=== PATIENT | female | born 1990 | race Caucasian/White ===

== ENCOUNTER 2017-01-30 16:21 | Emergency (ER) | payer MEDICAID ==
[~2017-01-30] VITALS: Ht 162.6 cm; Wt 59.0 kg
[~2017-01-30 16:21] MED LIST: ALBUTEROL SULF8.5 GM INH; AZITHROMYCIN250 MG ORAL; PHENERGAN6.25 MG/5 ORAL; PRILOSEC20 MG ORAL; ZOFRAN ODT4 MG ORAL
[2017-01-30 16:35] VITALS: BP 128/83
[2017-01-30] MEDS ORDERED: Bacitracin Oint UD TOPIC ONE (16:45)
[2017-01-30] MEDS ORDERED: Norco 5mg/325mg tab ORAL ONE (16:45)
[2017-01-30] MEDS ORDERED: Lidocaine 1% MPF 10mg/ml 5ml IM ONE (16:45)
[2017-01-30] MEDS ORDERED: TdaP Vaccine 0.5ml Syr IM ONE (16:45)
--- NOTE | 2017-01-30 16:49 | Emergency Room Report ---
History of Present Illness General Chief Complaint: Laceration Source: Patient Present Illness HPI 26-year-old female presents to emergency Department complaining of laceration to the right ring finger times one hour. Patient states she was cleaning dishes when a glass broke and she cut her finger on a sharp edge. Patient states she does now know when her last tetanus vaccination was. Patient denies taking blood thinning medications. Patient reports 8/10 in severity pain to the right ring finger exacerbated upon touch or movement. Denies numbness tingling or loss of sensation or gross motor movements of the extremities, incontinence of bowel or bladder. Denies CP, Palpitations, LOC, AMS, dizziness, Changes in Vision, Sensation, paresthesias, or a sudden severe headache. Allergies: Coded Allergies: NO KNOWN ALLERGIES (Unverified Allergy, Unknown, 08/27/15) Patient History Past Medical History: see triage record Past Surgical History: none Pertinent Family History: none Last Menstrual Period: 01/24/17 Now: No Reviewed Nursing Documentation: PMH: Agreed, PSxH: Agreed Nursing Documentation-PMH Past Medical History: No Stated History Review of Systems All Other Systems: negative except mentioned in HPI Physical Exam Vital Signs Date Time Temp Pulse Resp B/P Pulse Ox O2 Delivery O2 Flow Rate FiO2 01/30/17 16:30 97.5 108 128/83 100 Room Air 01/30/17 16:35 15 Sp02 EP Interpretation: reviewed, normal General Appearance: no apparent distress, alert, GCS 15, non-toxic Head: normocephalic, atraumatic Eyes: bilateral eye PERRL, bilateral eye normal inspection ENT: hearing grossly normal, normal pharynx, no angioedema, normal voice Neck: full range of motion, supple/symm/no masses Respiratory: chest non-tender, lungs clear, normal breath sounds, speaking full sentences Cardiovascular #1: regular rate, rhythm, no edema Rectal: deferred Musculoskeletal: back normal, gait/station normal, normal range of motion - FROM , non-tender, no calf tenderness, other - PT is NVI to extremity. Neurologic: alert, oriented x3, responsive, motor strength/tone normal, sensory intact, speech normal Psychiatric: judgement/insight normal, memory normal, mood/affect normal, no suicidal/homicidal ideation Skin: normal color, no rash, warm/dry, well hydrated, laceration - 1.5cm laceration to the lateral aspect of the right 4th digit. laceration is linear and runs Procedures Laceration/Wound Repair Laceration/Wound Repair : Consent: Verbal Wound Location: upper extremity - right ring finger Wound's Depth, Shape: linear Wound Length (cm): 1 Betadine Prep?: Yes Anesthesia: 1% Lidocaine Volume Anesthetic (ccs): 3 Wound Repaired With: sutures Suture Size/Type: 6:0 Number of Sutures: 4 Layer Closure?: No Sterile Dressing Applied?: Yes Splint Applied?: Yes Type of Splint Applied: finger Sling Applied?: No Patient Tolerated: Well Complications: None Medical Decision Making PA Attestation Dr. Langley is my supervising Physician whom patient management has been discussed with. Diagnostic Impression: Primary Impression: Laceration ER Course 26-year-old female presents to emergency Department complaining of laceration to the right ring finger times one hour. Patient states she was cleaning dishes when a glass broke and she cut her finger on a sharp edge. Patient states she does now know when her last tetanus vaccination was. Patient denies taking blood thinning medications. Patient reports 8/10 in severity pain to the right ring finger exacerbated upon touch or movement. Ddx considered but are not limited to laceration, tendon injury, cellulitis, amputation Vital signs: are WNL, pt. is afebrile H&PE are most consistent with: right ring finger laceration approx 1.5 cm in length ORDERS: none required at this time, the diagnosis is clinical ED INTERVENTIONS: -5mg [place] PO -Tetanus vaccine was administered as pt. vaccination status was unknown. - The wound was copiously irrigated with normal saline, and explored for foreign body for which no FB was found. - pt. is anesthetized with 1%lidocaine - The wound was approximated and closed using 4 interrupted 6.0 Prolene sutures. -Bacitracin is applied. -Finger Splint applied by medical technician assistant. Pt. remains neurovascularly intact. Discussed with patient: That we make every effort to approximate the laceration as best as we can so that scarring will be as cosmetically pleasing as possible with our limited cosmetic skill set in the Emergency dept. Regardless of our best efforts there will be scarring after laceration repair. The extent of scarring is unknown at this time. DISCHARGE: At this time pt. is stable for d/c to home. Will provide printed patient care instructions, and any necessary prescriptions. Care plan and follow up instructions have been discussed with the patient prior to discharge. Last Vital Signs Date Time Temp Pulse Resp B/P Pulse Ox O2 Delivery O2 Flow Rate FiO2 01/30/17 16:35 97.5 79 15 128/83 100 Room Air Disposition: HOME, SELF-CARE Condition: Stable Scripts Bacitracin Zinc/Polymyx B Sulf (HM DOUBLE ANTIBIOTIC OINTMENT) 28.4 Gm Oint...g. 1 APPLIC TP BID, #28.4 GM Prov: Jordyn Garcias 01/30/17 Cephalexin* (KEFLEX*) 500 Mg Capsule 500 MG ORAL EVERY 12 HOURS for 7 Days, #14 CAP 0 Refills Prov: Jordyn Garcias 01/30/17 Patient Instructions: Laceration Care, Adult Additional Instructions: Take medications as directed. Follow up with PCP in 3-5 days Return sooner to ED if new symptoms occur, or current symptoms become worse. - Please note that this Emergency Department Report was dictated using [employer] table attendant technology software, occasionally this can lead to erroneous entry secondary to interpretation by the dictation equipment. Jordyn Garcias Jan 30, 2017 16:49
[2017-01-30] MEDS ORDERED: CEPHALEXIN500 MG ORAL (17:38)
[2017-01-30] MEDS ORDERED: HM DOUBLE ANT28.4 G1 TP (17:38)
[2017-01-30 17:50] VITALS: BP 132/81
== END 2017-01-30 17:50 | disposition home or self-care (01) ==
LOC: EMR 16:55
DX: S61.214A Laceration without foreign body of right ring finger without damage to nail, initial encounter (principal); Z23 Encounter for immunization; W25.XXXA Contact with sharp glass, initial encounter; Y93.G1 Activity, food preparation and clean up; Y92.9 Unspecified place or not applicable; Y99.8 Other external cause status
CPT/HCPCS: 12001; 29280; 90471; 90715; 99284; Z7502

== ENCOUNTER 2017-08-13 10:06 | Emergency (ER) | payer MEDICAID ==
[~2017-08-13] VITALS: Ht 160 cm; Wt 49.0 kg
[~2017-08-13 10:06] MED LIST changes: +CEPHALEXIN500 MG ORAL; +HM DOUBLE ANT28.4 G1 TP
[2017-08-13 10:17] VITALS: BP 113/77
--- NOTE | 2017-08-13 10:55 | Emergency Room Report ---
History of Present Illness General Chief Complaint: Upper Respiratory Illness Source: Patient Present Illness HPI 26-year-old female no significant past medical history presenting with 2 days of sore throat right ear pain productive cough. Productive cough with yellow sputum. Subjective fever and chills. Sick contacts include grandma no other complaints Allergies: Coded Allergies: NO KNOWN ALLERGIES (Unverified Allergy, Unknown, 08/27/15) Patient History Past Medical History: see triage record Past Surgical History: none Pertinent Family History: none Last Menstrual Period: 07/29/2017 Reviewed Nursing Documentation: PMH: Agreed, PSxH: Agreed Nursing Documentation-PMH Past Medical History: No Stated History Review of Systems All Other Systems: negative except mentioned in HPI Physical Exam Vital Signs Date Time Temp Pulse Resp B/P (MAP) Pulse Ox O2 Delivery O2 Flow Rate FiO2 08/13/17 10:17 98.1 83 16 113/77 98 Room Air Sp02 EP Interpretation: reviewed, normal General Appearance: normal inspection, well appearing, no apparent distress, alert, GCS 15, non-toxic Head: normocephalic, atraumatic Eyes: bilateral eye normal inspection, bilateral eye PERRL, bilateral eye EOMI ENT: normal voice, moist mucus membranes, other - Mild posterior pharynx erythema no exudates, no uvula enlargement or tonsillar enlargement no exudates Neck: normal inspection, full range of motion, supple Respiratory: normal inspection, lungs clear, normal breath sounds, no respiratory distress, no retraction, no wheezing, speaking full sentences, chest symmetrical Cardiovascular #1: normal inspection, regular rate, rhythm, no edema, normal capillary refill Cardiovascular #2: 2+ radial (R), 2+ radial (L) Gastrointestinal: normal inspection, non tender, soft, non-distended, no guarding Musculoskeletal: normal inspection, back normal, normal range of motion, non- tender Neurologic: normal inspection, alert, oriented x3, responsive, motor strength/ tone normal, sensory intact, normal gait, speech normal Psychiatric: normal inspection, judgement/insight normal, memory normal Skin: normal inspection, normal color, no rash, warm/dry, well hydrated, normal turgor Medical Decision Making Diagnostic Impression: Primary Impression: Upper respiratory infection Additional Impression: Left ear pain ER Course 26-year-old female with sore throat cough earache DDX: viral syndrome, pharyngitis, pneumonia. allergies Plan: Motrin, supportive care. Chest x-ray ER course: Disposition: Patient will be discharged to home. Patient will follow up with primary care doctor within 5 days. Strict return precautions discussed with patient such as worsening throat pain/swelling, dysphagia, high fever or chills, shortness of breath, abdominal pain, which may indicate severe illness. Patient verbalized understanding and agreed with plan. Please note that this Emergency Department Report was dictated using [employer] student services technology software, occasionally this can lead to erroneous entry secondary to interpretation by the dictation equipment. Last Vital Signs Date Time Temp Pulse Resp B/P (MAP) Pulse Ox O2 Delivery O2 Flow Rate FiO2 08/13/17 10:17 98.1 83 16 113/77 98 Room Air Disposition: HOME, SELF-CARE Condition: Improved Scripts Ibuprofen* (MOTRIN*) 600 Mg Tablet 600 MG ORAL Q8H Y for For Pain, #30 TAB 0 Refills Prov: Chip Alexis M.D. 08/13/17 Patient Instructions: Upper Respiratory Infection, Adult Chip Alexis M.D. Aug 13, 2017 10:55
[2017-08-13] MEDS ORDERED: IBUPROFEN600 MG ORAL (11:01)
--- NOTE | 2017-08-13 11:19 | Diagnostic Imaging Report ---
Indication: Dyspnea Comparison: None A single view chest radiograph was obtained. Findings: Cardiomediastinal appearance is within normal limits for age. Pulmonary vascularity is appropriate. The diaphragmatic contour is smooth and costophrenic angles are sharp. No pleural effusions are identified. The bones are unremarkable. Impression: No acute findings
[2017-08-13 11:27] VITALS: BP 113/77
== END 2017-08-13 11:57 | disposition home or self-care (01) ==
LOC: EMR 11:34
DX: J06.9 Acute upper respiratory infection, unspecified (principal); H92.02 Otalgia, left ear
CPT/HCPCS: 71010; 99283

== ENCOUNTER 2017-08-19 15:45 | Emergency (ER) | payer MEDICAID ==
[~2017-08-19] VITALS: Ht 165.1 cm; Wt 45.8 kg
[~2017-08-19 15:45] MED LIST changes: +IBUPROFEN600 MG ORAL
[2017-08-19] MEDS ORDERED: IBUPROFEN600 MG ORAL (16:23)
[2017-08-19] MEDS ORDERED: PREDNISONE20 MG ORAL (16:23)
[2017-08-19] MEDS ORDERED: AMOXICILLIN500 MG ORAL (16:23)
--- NOTE | 2017-08-19 16:42 | Emergency Room Report ---
History of Present Illness General Chief Complaint: Earache Source: Patient Present Illness HPI The patient is a 26 yo female presenting for sore throat and ear pain which began this morning. She states that she has had sick contact with her mother who has similar symptoms. Pain is a 9/10 dull ache to the left ear and the back of the throat. Worse with swallowing. She has tried Tylenol which has not helped. She denies any recent travel. She denies any fever or chills. She denies other symptoms Allergies: Coded Allergies: NO KNOWN ALLERGIES (Unverified Allergy, Unknown, 08/27/15) Patient History Past Medical History: see triage record Pertinent Family History: none Last Menstrual Period: 08/19/17 Now: No Reviewed Nursing Documentation: PMH: Agreed, PSxH: Agreed Nursing Documentation-PMH Past Medical History: No Stated History Review of Systems All Other Systems: negative except mentioned in HPI Physical Exam Vital Signs Date Time Temp Pulse Resp B/P (MAP) Pulse Ox O2 Delivery O2 Flow Rate FiO2 08/19/17 15:52 98.8 97 15 112/74 97 Room Air Sp02 EP Interpretation: reviewed, normal General Appearance: no apparent distress, alert, GCS 15, non-toxic Head: normocephalic, atraumatic Eyes: bilateral eye normal inspection, bilateral eye PERRL ENT: hearing grossly normal, normal voice, uvula midline, tonsillar swelling, pharyngeal erythema Neck: full range of motion, supple, no bony tend Respiratory: chest non-tender, lungs clear, normal breath sounds, speaking full sentences Musculoskeletal: back normal, gait/station normal, normal range of motion, non- tender Neurologic: alert, oriented x3, responsive, motor strength/tone normal, sensory intact, speech normal Psychiatric: judgement/insight normal, memory normal, mood/affect normal, no suicidal/homicidal ideation Skin: normal color, no rash, warm/dry, well hydrated Lymphatic: no adenopathy Medical Decision Making PA Attestation Dr. Kamara is my supervising physician. Patient management was discussed with my supervising physician Diagnostic Impression: Primary Impression: Pharyngitis, acute Qualified Codes: J02.9 - Acute pharyngitis, unspecified ER Course The patient is a 26 yo female presenting for sore throat and ear pain Differential diagnosis include but not limited to pharyngitis, sinusitis, AOM, bronchitis, PNA Physical exam: Vitals within normal limits. Afebrile. No apparent distress HEENT exam: There is bilateral tonsillar edema, erythema. Uvula midline. Moist mucous membranes. There is no lymphadenopathy. Lungs are clear to auscultation bilaterally Skin is warm and dry. No rash The patient will be discharged home with a prescription for amoxicillin and is given ER precautions. Patient will followup with primary care Last Vital Signs Date Time Temp Pulse Resp B/P (MAP) Pulse Ox O2 Delivery O2 Flow Rate FiO2 08/19/17 15:52 98.8 97 15 112/74 97 Room Air Status: improved Disposition: HOME, SELF-CARE Condition: Improved Scripts Ibuprofen* (MOTRIN*) 600 Mg Tablet 600 MG ORAL Q8H Y for For Pain, #30 TAB 0 Refills Prov: BLAISE HUTTON P.A. 08/19/17 Prednisone* (PREDNISONE*) 20 Mg Tablet 20 MG ORAL DAILY, #5 TAB 0 Refills Prov: BLAISE HUTTON P.A. 08/19/17 Amoxicillin* (AMOXIL*) 500 Mg Capsule 500 MG ORAL Q12HR, #20 CAP Prov: BLAISE HUTTON P.A. 08/19/17 Referrals: [facility],REFERRING (PCP) Patient Instructions: Pharyngitis Additional Instructions: I discussed my findings with the patient. All questions and concerns have been answered. Treatment and medication compliance have been addressed. I advised the patient that they need to follow up with PMD in 3-5 days. Return to ED if pain remains or worsens, cough worsens or remains, you notice blood in your sputum, you notice wheezing, you experience a fever, or if needed for any reason. Patient verbalized understanding of discharge instructions. BLAISE HUTTON Aug 19, 2017 16:42
[2017-08-19 16:45] VITALS: BP 119/80
== END 2017-08-19 16:45 | disposition home or self-care (01) ==
LOC: EMR 16:20
DX: J02.9 Acute pharyngitis, unspecified (principal)
CPT/HCPCS: 99284

== ENCOUNTER 2018-06-03 07:45 | Emergency (ER) | payer MEDICAID ==
[~2018-06-03] VITALS: Ht 167.6 cm; Wt 54.4 kg
[~2018-06-03 07:45] MED LIST changes: +AMOXICILLIN500 MG ORAL; +PREDNISONE20 MG ORAL
[2018-06-03] MEDS ORDERED: AMOXICILLIN500 MG ORAL (08:03)
[2018-06-03] MEDS ORDERED: IBUPROFEN400 MG ORAL (08:03)
[2018-06-03 08:11] VITALS: BP 124/90
[2018-06-03 08:12] VITALS: BP 124/90
--- NOTE | 2018-06-03 08:58 | Emergency Room Report ---
History of Present Illness General Chief Complaint: Sore Throat Source: Patient Present Illness HPI 27-year-old F presents ED complaining of ear ache in sore throat. Started yesterday. Patient states symptoms did not improve after Tylenol so she came here for evaluation. Pain is throbbing, 8 out of 10, nonradiating. Denies any fevers or chills. Denies cough. Denies sick contacts or recent travel. No other aggravating relieving factors. Denies any other associated symptoms Allergies: Coded Allergies: NO KNOWN ALLERGIES (Unverified Allergy, Unknown, 08/27/15) Patient History Past Medical History: none Past Surgical History: none Pertinent Family History: none Social History: Denies: smoking, alcohol use, drug use Last Menstrual Period: 05/27/18 Now: No Immunizations: UTD Reviewed Nursing Documentation: PMH: Agreed; PSxH: Agreed Nursing Documentation-PMH Past Medical History: No Stated History Review of Systems All Other Systems: negative except mentioned in HPI Physical Exam Vital Signs Date Time Temp Pulse Resp B/P (MAP) Pulse Ox O2 Delivery O2 Flow Rate FiO2 06/03/18 07:50 98.2 92 16 124/90 93 Room Air 98.2 Sp02 EP Interpretation: reviewed, normal General Appearance: no apparent distress, alert, GCS 15, non-toxic Head: normocephalic Eyes: bilateral eye normal inspection, bilateral eye PERRL ENT: hearing grossly normal, normal pharynx, no angioedema, normal voice, pharyngeal erythema, other - L TM poor light reflex Neck: full range of motion, no meningismus, supple/symm/no masses Respiratory: normal inspection Cardiovascular #1: normal inspection Gastrointestinal: normal inspection Rectal: deferred Genitourinary: no CVA tenderness Musculoskeletal: normal inspection Neurologic: alert, oriented x3, responsive, motor strength/tone normal, sensory intact, speech normal Psychiatric: normal inspection Skin: normal inspection Lymphatic: normal inspection Medical Decision Making Diagnostic Impression: Primary Impression: Otitis media Qualified Codes: H65.192 - Other acute nonsuppurative otitis media, left ear ER Course Hospital Course 27-year-old M presents to ED with pain L ear, sore throat. no fever. Differential diagnoses include: TM perforation, otitis externa, otitis media Clinical course Patient placed on stretcher. After initial history, physical exam reveals a young female in no acute distress. L TM poor light reflex. minimal pharyngeal erythema. no tonsillar exudates. Remainder of physical exam unremarkable. clinical findings consistent with otitis media Diagnosis - otitis media Stable and discharged to home with Rx amoxicillin, motrin. Followup with PMD. Return to ED if symptoms recur or worsen Last Vital Signs Date Time Temp Pulse Resp B/P (MAP) Pulse Ox O2 Delivery O2 Flow Rate FiO2 06/03/18 08:12 98.2 80 16 124/90 96 Room Air 98.2 Status: improved Disposition: HOME, SELF-CARE Condition: Stable Scripts Ibuprofen* (MOTRIN*) 400 Mg Tablet 400 MG ORAL Q8H, #30 TAB 0 Refills Prov: Seth Correia MD 06/03/18 Amoxicillin* (AMOXIL*) 500 Mg Capsule 500 MG ORAL THREE TIMES A DAY for 10 Days, CAP Prov: Seth Correia MD 06/03/18 Patient Instructions: Pharyngitis, [id number] Seth Correia MD Jun 03, 2018 08:58
== END 2018-06-03 08:15 | disposition home or self-care (01) ==
LOC: EMR 08:00
DX: H65.192 Other acute nonsuppurative otitis media, left ear (principal)
CPT/HCPCS: 99284

== ENCOUNTER 2018-06-18 08:56 | Emergency (ER) | payer MEDICAID ==
[~2018-06-18] VITALS: Ht 167.6 cm; Wt 54.4 kg
[~2018-06-18 08:56] MED LIST changes: +IBUPROFEN400 MG ORAL
[2018-06-18 09:15] VITALS: BP 117/85
--- NOTE | 2018-06-18 09:23 | Emergency Room Report ---
History of Present Illness General Chief Complaint: Earache Source: Patient Present Illness HPI Patient is a 27-year-old female who presented after increased left-sided earache for approximately one week. The patient reports having recently finished a course of amoxicillin. This had not improved. The patient was having increased the sore throat as well as the sharp pain to the left ear. As she reports having increased congestion and nonproductive cough. The patient denies any severe difficulty breathing. Allergies: Coded Allergies: NO KNOWN ALLERGIES (Unverified Allergy, Unknown, 08/27/15) Patient History Last Menstrual Period: 2 weeks Now: No Reviewed Nursing Documentation: PMH: Agreed; PSxH: Agreed Nursing Documentation-PMH Past Medical History: No Stated History Review of Systems All Other Systems: negative except mentioned in HPI Physical Exam Vital Signs Date Time Temp Pulse Resp B/P (MAP) Pulse Ox O2 Delivery O2 Flow Rate FiO2 06/18/18 09:05 98.4 117 22 117/85 95 Room Air 98.4 General Appearance: well appearing, no apparent distress, alert, GCS 15 Head: normocephalic, atraumatic ENT: hearing grossly normal, normal voice Neck: full range of motion, supple Respiratory: no respiratory distress, speaking full sentences, wheezing Gastrointestinal: normal inspection, non tender, soft Musculoskeletal: no calf tenderness Neurologic: normal gait Psychiatric: mood/affect normal Skin: no rash Medical Decision Making Diagnostic Impression: Primary Impression: Bronchitis ER Course Patient presented for ear pain. Differential diagnosis included was not limited to otitis media, malignant otitis externa, foreign body, cellulitis, mastoiditis, carotid dissection, myocardial infarction among others. Patient has a benign exam and does not appear to require any further imaging or laboratory testing at this time. The patient was given breathing treatment. She appears to have some evidence of bronchitis. She does not appear to have any ear infection at this time. The patient is advised to follow up with primary care doctor in 1-2 days. Patient is advised to return if any worsening condition or if any changes in status that are concerning. This report is dictated with [employer] electrical prospector software which may occasionally lead to discrepancies related to use of this software. Labs Test 06/18/18 09:29 Urine HCG, Qualitative Negative (NEGATIVE) Last Vital Signs Date Time Temp Pulse Resp B/P (MAP) Pulse Ox O2 Delivery O2 Flow Rate FiO2 06/18/18 09:15 98.4 22 117/85 95 Room Air 98.4 06/18/18 09:05 117 Status: improved Disposition: HOME, SELF-CARE Condition: Stable Scripts Ibuprofen* (MOTRIN*) 400 Mg Tablet 400 MG ORAL Q8H, #30 TAB 0 Refills Prov: Lester Langley MD 06/18/18 D-Methorphan Hb/Prometh Hcl* (PROMETHAZINE-DM SYRUP*) 118 Ml Syrup 5 ML ORAL Q6H PRN for For Cough, #120 ML 0 Refills Prov: Lester Langley MD 06/18/18 Prednisone* (PREDNISONE*) 20 Mg Tablet 40 MG ORAL DAILY, #10 TAB Prov: Lester Langley MD 06/18/18 Referrals: LISBETH ARANDA M.D. (PCP) Lester Langley MD Jun 18, 2018 09:23
[2018-06-18] MEDS ORDERED: Lidocaine 2% Visc 15ml soln ORAL ONE (09:30)
[2018-06-18] MEDS ORDERED: Albuterol/Ipratropium 3ml neb HHN ONE (09:30)
[2018-06-18] MEDS ORDERED: PREDNISONE20 MG ORAL (09:56)
[2018-06-18] MEDS ORDERED: PROMETHAZINE-D118 ML ORAL (10:01)
[2018-06-18] MEDS ORDERED: IBUPROFEN400 MG ORAL (10:03)
[2018-06-18 10:05] VITALS: BP 117/85
== END 2018-06-18 10:10 | disposition home or self-care (01) ==
LOC: EMR 09:21
DX: J40 Bronchitis, not specified as acute or chronic (principal); H92.02 Otalgia, left ear
CPT/HCPCS: 81025; 94640; 94664; 99284; J7620